=== PATIENT | female | born 1965 | race Caucasian/White ===

== ENCOUNTER → 2023-02-27 | Outpatient (CLI) | payer BC | END | disposition home or self-care (01) | LOC: LABWHC1 13:56 | PROVIDERS: ATTEND Surgery Plastic and Reconstructive Surgery | DX: Z01.812 Encounter for preprocedural laboratory examination (principal); R94.31 Abnormal electrocardiogram [ECG] [EKG] | CPT/HCPCS: 36415; 93005 ==

== ENCOUNTER 2023-04-13 13:24 | Day surgery (SDC) | payer BC ==
--- NOTE | 2023-04-13 05:28 | P.GSHP ---
History of Present Illness H&P Date: 04/13/23 CHIEF COMPLAINT: History of intra-abdominal adhesions HISTORY OF PRESENT ILLNESS: The patient is a 57-year-old female who presents with history of intra-abdominal adhesions from multiple prior surgeries including increasing abdominal pain. She now presents for diagnostic laparoscopy including lysis of adhesions. PAST MEDICAL HISTORY: Please see list. PAST SURGICAL HISTORY: Please see list. MEDICATIONS: Please see list. ALLERGIES: Please see list. SOCIAL HISTORY: No illicit drug use FAMILY HISTORY: No reports of Crohn disease or ulcerative colitis. REVIEW OF ORGAN SYSTEMS: CONSTITUTIONAL: No reports of fevers or chills. GI: Denies any blood in stools or constipation. PHYSICAL EXAM: VITAL SIGNS: Stable GENERAL: Well-developed pleasant and in no acute distress. HEENT: No scleral icterus. Extraocular movements grossly intact. Moist buccal mucosa. NECK: Supple without lymphadenopathy. CHEST: Unlabored respirations. Equal bilateral excursions. CARDIOVASCULAR: Regular rate and rhythm. Distal 2+ pulses. ABDOMEN: Soft, diffuse abdominal tenderness. No peritonitis. MUSCULOSKELETAL: No clubbing, cyanosis, or edema. ASSESSMENT: 1. Diffuse abdominal pain. 2. History of multiple abdominal surgeries. 3. Intra-abdominal adhesions. PLAN: 1. Robotic lysis of adhesions were described in detail including risk of injury to the intestine, need for further surgery, and open technique. 2. DVT prophylaxis. 3. Antibiotic prophylaxis. Past Medical History Past Medical History: Cancer, Thyroid Disorder Additional Past Medical History / Comment(s): AUTOIMMUNE THYROID DISEASE-MITRAL VALVE ISSUE THAT ACTS UP WHEN THYROID DOES. LEFT BREAST CANCER 2016. OSTEOPOROSIS. KINDEY STONES. CHRONIC BACK AND BONE PAIN History of Any Multi-Drug Resistant Organisms: None Reported Past Surgical History: Breast Surgery, Hysterectomy, Orthopedic Surgery Additional Past Surgical History / Comment(s): CHERYLE MASTECTOMY WITH RECONSTRU CTION. SALPINGECTOMY AFTER HYSTERECTOMY. LITHOTRIPSY. LEFT THYROID LOBECTOMY AND ISTHMUS REMOVED. PINS IN ARM AFTER FX Past Anesthesia/Blood Transfusion Reactions: Postoperative Nausea & Vomiting (PONV) Additional Past Anesthesia/Blood Transfusion Reaction / Comment(s): PONV AFTER THYROID SURGERY Smoking Status: Former smoker - Past Family History Father Family Medical History: Cancer Additional Family Medical History / Comment(s): LUNG Medications and Allergies Home Medications Medication Instructions Recorded Confirmed Type Calcium Carbonate [Calcium] 600 mg PO DAILY 03/23/23 04/09/23 History Cholecalciferol [Vitamin D3 (25 25 mcg PO DAILY 03/23/23 04/09/23 History Mcg = 1000 Iu)] Magnesium 0 mg PO DAILY 03/23/23 04/09/23 History Nf-Zohydro Er 30 mg PO BID 03/23/23 04/09/23 History Tamoxifen [Nolvadex] 10 mg PO DAILY 03/23/23 04/09/23 History cloNIDine HCL 0.1 mg PO BID 03/23/23 04/09/23 History Allergies Allergy/AdvReac Type Severity Reaction Status Date / Time tetracycline Allergy Swelling Verified 04/09/23 09:24 [From Achromycin]
[~2023-04-13 13:24] MED LIST: ACETAMINOPHEN TAB 325 MG TAB PO PRN; ACETAMINOPHEN TAB 500 MG TAB PO PRN; HEPARIN SODIUM,PORCINE/PF 5,000 UNIT/0.5 ML SYRINGE SQ PRN; MELOXICAM 7.5 MG TAB PO PRN; ONDANSETRON 4 MG/2 ML VIAL IVP PRN; Pre Op ABX Message 1 EACH MISC MISCELLANE ONE
[2023-04-13] MEDS ORDERED: LACTATED RINGERS 1,000 ML IV SCH (14:37)
--- NOTE | 2023-04-13 15:12 | P.HPADDEND ---
H&P Addendum H&P Addendum Date: 04/13/23 Patient presents for right lower quadrant pain and no appendicolith for appendicitis. Robotic appendectomy described in the emergency lysis of adhesions. Patient has pre-existing pain contract where nonnephrotic pain to be dispensed
[2023-04-13 15:20] LABS: Basophils % (A) 0 %; Eosinophils # (A) 0.2 k/uL (0-0.7); Eosinophils % (A) 3 %; HCT 44.3 % (34.0-46.0); HGB 14.5 gm/dL (11.4-16.0); Lymphocytes # (A) 2.2 k/uL (1.0-4.8); Lymphocytes % (A) 31 %; MCH 31.9 pg (25.0-35.0); MCHC 32.8 g/dL (31.0-37.0); MCV 97.4 fL (80.0-100.0); Mean Platelet Volume 9.3; Monocytes # (A) 0.4 k/uL (0-1.0); Monocytes % (A) 6 %; Neutrophils # (A) 4.1 k/uL (1.3-7.7); Neutrophils % (A) 57 %; Platelet Count 215 k/uL (150-450); RBC 4.55 m/uL (3.80-5.40); RDW 13.4 % (11.5-15.5); WBC 7.2 k/uL (3.8-10.6)
[2023-04-13 15:21] LABS: ALT 18 U/L (4-34); AST 30 U/L (14-36); African American GFR (CKD) >90 (>60 ml/min/1.73 sqM); Albumin 4.3 g/dL (3.5-5.0); Alkaline Phosphatase 64 U/L (38-126); Anion Gap 6 mmol/L; Blood Urea Nitrogen 20 mg/dL (7-17); Calcium 9.4 mg/dL (8.4-10.2); Carbon Dioxide 31 mmol/L (22-30); Chloride 103 mmol/L (98-107); Glucose 98 mg/dL (74-99); Non-African American GFR(CKD) >90 (>60 ml/min/1.73 sqM); Potassium 4.4 mmol/L (3.5-5.1); Sodium 140 mmol/L (137-145); Total Bilirubin 0.4 mg/dL (0.2-1.3); Total Protein 7.7 g/dL (6.3-8.2)
[2023-04-13] MEDS ORDERED: fentaNYL (PF) 50 MCG/ML 2 ML AMP ONE (15:25)
[2023-04-13] MEDS ORDERED: LIDOCAINE 2% INJ 20 MG/ML (2 ML VIAL) ONE (15:25)
[2023-04-13] MEDS ORDERED: PROPOFOL 10 MG/ML 20 ML VIAL IV ONE (15:25)
[2023-04-13] MEDS ORDERED: ePHEDrine 50 MG/ML 1 ML VIAL ONE (15:25)
[2023-04-13] MEDS ORDERED: KETOROLAC 15 MG/ML 1 ML VIAL ONE (15:25)
[2023-04-13] MEDS ORDERED: GLYCOPYRROLATE 0.2 MG/ML 2 ML VIAL ONE (15:25)
[2023-04-13] MEDS ORDERED: NEOSTIGMINE 1 MG/ML 10 ML VIAL ONE (15:25)
[2023-04-13] MEDS ORDERED: ROCURONIUM 10 MG/ML (5 ML VIAL) IV ONE (15:25)
[2023-04-13] MEDS ORDERED: SUCCINYLCHOLINE CHLORIDE 200 MG/10 ML VIAL IV ONE (15:25)
[2023-04-13] MEDS ORDERED: PHENYLEPHRINE-0.9% NACL SYG 1,000 MCG/10 ML SYRINGE ONE (15:25)
[2023-04-13] MEDS ORDERED: MIDAZOLAM 2 MG/2 ML VIAL ONE (15:25)
[2023-04-13] MEDS ORDERED: LIDOCAINE 0.5%-EPI 1:200,000 50 ML VIAL SQ ONE ×2 (15:30)
[2023-04-13] MEDS ORDERED: LACTATED RINGERS 1,000 ML IV ONE (16:58)
[2023-04-13 17:17] VITALS: TEMP 97.2
--- NOTE | 2023-04-13 17:53 | P.OP ---
Date of Procedure: 04/13/23 Description of Procedure: SURGEON: DARA BAUM MD Preoperative Diagnosis: 1. Right lower quadrant pain 2. Appendicolith 3. Left lower quadrant abdominal pain 4. History of multiple abdominal surgeries 5. History of breast cancer 6. History of multiple abdominal adhesions Postoperative Diagnosis: 1. Appendicitis 2. Sigmoid volvulus Procedure(s) Performed: 1. Robotic-assisted daVinci Xi laparoscopic reduction of sigmoid volvulus 2. Robotic-assisted daVinci Xi laparoscopic appendectomy Anesthesia: GETA, local Estimated Blood Loss (ml): 5 Pathology: other (appendix) Condition: stable Disposition: floor Operative Findings: 1. Diffuse gaseous distention of colon 2. Sigmoid volvulus reduced without ischemia or infarct 3. No pelvic adhesions identified 4. Multiple appendicoliths within the appendix, chronic appendicitis 5. Trochars placed upon upper abdomen 6. Reduce insufflation due to underweight INDICATIONS: The patient is a 57-year-old female who presents with acute appendicitis. Benefits and risks, including infection, open surgery, and bleeding for additional surgery was discussed at length. Informed consent was obtained. All questions of the patient and family were answered. DESCRIPTION: The patient was transferred to the operating room and placed in supine position. The patient had previously voided. The abdomen was then prepped and draped in standard sterile fashion as Ioban was placed along the abdomen to minimize any contamination of skin floor. After a timeout protocol was performed, attention was then brought to the left upper quadrant whereby a 0 degree 5 mm laparoscopic trocar entry was performed. The abdominal cavity was entered and insufflated to 12 mmHg pressure, which was tolerated well. Diagnostic laparoscopy demonstrated no injury to bowel, viscera or mesentery. Next a robotic 8-mm trocar was placed along the left lower quadrant, 10-cm lateral to the midline. A 12 mm port was placed along the left upper quadrant and another 8-mm port left lateral abdominal wall. Ports were placed 8 cm apart from each other including 15-20 cm away from the target anatomy of the right pelvis. The patient was then placed in Trendelenburg position, at least 14 down and right side up at least 7. The robotic da Chente XI system was primed and docked from the left side of the patient. Using atraumatic graspers and vessel sealer, the robotic system was docked and primed as described. Instruments were interchanged by the dietitian assistant including graspers, robotic stapler and vessel sealer. Next, attention was brought to identify the cecum. A systematic view within the abdominal cavity was started with the small bowel which was unremarkable. The base of the cecum was unremarkable. The appendix was retrocecal coursing towards right upper quadrant behind the ascending colon with additional dissection required. The body of the appendix was moderately dilated with moderate periappendicitis. No perforation was identified. The appendix was dissected free from its surrounding tissues. Blue 45 mm robotic staple loads were fired along the base of the appendix. The staple line was hemostatic. Hemostasis was checked prior to undocking the robot. The robot was undocked. I re-scrubbed into the case. The specimen was removed from the abdominal cavity with an Endo Catch bag through the 12 mm trocar at the left upper quadrant. All instruments and pneumoperitoneum were evacuated from the abdominal cavity. Local anesthetic was infiltrated to all wounds for postop analgesia. All incisions were also cleansed with diluted hydrogen peroxide. The incisions were closed with 4-0 Monocryl. Exofin glue was applied to the rest of the skin incisions. The patient had tolerated the procedure well. The patient was extubated successfully. The patient was transferred to the postanesthesia care unit in stable condition. Plan - Discharge Summary Discharge Rx Participant: No New Discharge Prescriptions: New Simethicone 40 mg/0.6 ml Drops [Mylicon Drops] 40 mg PO Q6HR PRN #30 ml PRN Reason: Abdominal Distention Acetaminophen Tab [Tylenol Tab] 500 mg PO Q6H PRN #30 tablet PRN Reason: Pain Continue cloNIDine HCL 0.1 mg PO BID Nf-Zohydro Er 30 mg PO BID Magnesium 0 mg PO DAILY Omeprazole 20 mg PO Cholecalciferol [Vitamin D3 (25 Mcg = 1000 Iu)] 25 mcg PO DAILY Calcium Carbonate [Calcium] 600 mg PO DAILY Tamoxifen [Nolvadex] 10 mg PO DAILY Discharge Medication List Calcium Carbonate [Calcium] 600 mg PO DAILY 03/23/23 [History] Cholecalciferol [Vitamin D3 (25 Mcg = 1000 Iu)] 25 mcg PO DAILY 03/23/23 [History] Magnesium 0 mg PO DAILY 03/23/23 [History] Nf-Zohydro Er 30 mg PO BID 03/23/23 [History] Tamoxifen [Nolvadex] 10 mg PO DAILY 03/23/23 [History] cloNIDine HCL 0.1 mg PO BID 03/23/23 [History] Acetaminophen Tab [Tylenol Tab] 500 mg PO Q6H PRN #30 tablet 04/13/23 [Rx] Omeprazole 20 mg PO 04/13/23 [History] Simethicone 40 mg/0.6 ml Drops [Mylicon Drops] 40 mg PO Q6HR PRN #30 ml 04/13/23 [Rx] Follow up Appointment(s)/Referral(s): Dara Baum MD [STAFF PHYSICIAN] - 04/17/23 Patient Instructions/Handouts: Laparoscopic Appendectomy (DC) Activity/Diet/Wound Care/Special Instructions: TELEHEALTH - DR WILL CALL YOU BETWEEN 8 am to 8 pm NO RETURN TO WORK UNTIL APR 30 Recommend low-fat diet for the next 2 days. No lifting over 10 pounds in 2 weeks until Apr 27December shower. No bath tub soaks for two weeks until Apr 27 Diet as tolerated. Use Tylenol, simethicone and ibuprofen or Aleve scheduled for the next 24-48 hours for best pain relief. Use ice along incisions for today to prevent swelling. Discharge Disposition: HOME SELF-CARE
[2023-04-13 18:07] VITALS: BP 91/59; PULSE 84; RESP 17
== END 2023-04-13 18:27 | disposition home or self-care (01) ==
LOC: OR 13:24
PROVIDERS: ATTEND Surgery Plastic and Reconstructive Surgery
DX: K36 Other appendicitis (principal); K66.0 Peritoneal adhesions (postprocedural) (postinfection); K56.2 Volvulus; K38.1 Appendicular concretions; E07.9 Disorder of thyroid, unspecified; Z85.3 Personal history of malignant neoplasm of breast; Z90.710 Acquired absence of both cervix and uterus; Z98.890 Other specified postprocedural states; Z87.891 Personal history of nicotine dependence; Z80.1 Family history of malignant neoplasm of trachea, bronchus and lung; Z79.899 Other long term (current) drug therapy; Z88.1 Allergy status to other antibiotic agents; Z79.890 Hormone replacement therapy
CPT/HCPCS: 80053; 85025; 88302; 44970; J2250; J0330; J2710; J2405; J3010; J1885; J2704; J1644; J2001; J2371

== ENCOUNTER 2023-06-21 09:19 | Day surgery (SDC) | payer BC ==
--- NOTE | 2023-06-21 07:56 | P.GSHP ---
History of Present Illness H&P Date: 06/21/23 CHIEF COMPLAINT: History of sigmoid volvulus HISTORY OF PRESENT ILLNESS: The patient is a 57-year-old female with chronic abdominal pain for over 3 years including recent diagnosis of sigmoid volvulus. Abdominal pain has been worsening. She presents today for colonoscopy decompression of sigmoid volvulus including sigmoid colon resection. PAST MEDICAL HISTORY: Please see list. PAST SURGICAL HISTORY: Please see list. MEDICATIONS: Please see list. ALLERGIES: Please see list. SOCIAL HISTORY: No illicit drug use FAMILY HISTORY: No reports of Crohn disease or ulcerative colitis. REVIEW OF ORGAN SYSTEMS: CONSTITUTIONAL: Denies any fever or chills. Underway, BMI 15.1 HEENT: Denies any trouble with vision or nosebleeds. No difficulty swallowing. LYMPHATIC: The patient denies any lumps and bumps around the neck. ENDOCRINE: Denies any thyroid disorders. RESPIRATORY: Denies pneumonia. Denies any troubles with breathing or dyspnea on exertion. CARDIOVASCULAR: Denies any chest pain, palpitations, or recent heart attacks GASTROINTESTINAL: Has gastroesophageal reflux disease. Change in bowel habits, volvulus. GENITOURINARY: No blood in urine. MUSCULOSKELETAL: Has back pain, stiffness, joint arthritis. NEUROLOGIC: Denies any numbness or tingling along the distal extremities. No seizure disorders or headaches. PSYCHIATRIC: Denies depression or suidical ideation. HEMATOLOGIC: Denies any abnormal bleeding or bruising. BREAST: History of breast cancer. PHYSICAL EXAM: VITAL SIGNS: Stable GENERAL: Well-developed pleasant in no acute distress. HEENT: No scleral icterus. Extraocular movements grossly intact. Moist buccal mucosa. NECK: Supple without lymphadenopathy. CHEST: Unlabored respirations. Equal bilateral excursions. CARDIOVASCULAR: Regular rate and rhythm. Distal 2+ pulses. ABDOMEN: Soft, nontender, nondistended. MUSCULOSKELETAL: No clubbing, cyanosis, or edema. NERUO: Cranial nerves II through XII grossly intact PSYCH: Alert and oriented to person place and time. ASSESSMENT: 1. Chronic abdominal pain due to sigmoid volvulus 2. History of breast cancer 3. Underweight, BMI 15.1 PLAN: 1. Benefits and risks of surgical intervention particular sigmoid volvulus reviewed in detail. Robotic-assisted approach was also described. 2. She has completed an enhanced colon recovery program. 3. DVT prophylaxis. 4. Antibiotic prophylaxis. 5. She is moderately elevated risk due to breast cancer and underweight Past Medical History Past Medical History: Cancer, GERD/Reflux, Thyroid Disorder Additional Past Medical History / Comment(s): AUTOIMMUNE THYROID DISEASE-MITRAL VALVE ISSUE THAT ACTS UP WHEN THYROID DOES. LEFT BREAST CANCER 2016, OSTEOPOROSIS , KIDNEY STONES ,CHRONIC BACK AND BONE PAIN. HAS TWISTED BOWEL History of Any Multi-Drug Resistant Organisms: None Reported Past Surgical History: Appendectomy, Breast Surgery, Hysterectomy, Orthopedic Surgery Additional Past Surgical History / Comment(s): CHERYLE MASTECTOMY WITH RECONSTRUCTION, SALPINGECTOMY AFTER HYSTERECTOMY. LITHOTRIPSY ,LEFT THYROID LOBECTOMY AND ISTHMUS REMOVED. PINS IN RT ARM AFTER FX, LYMPH NODES REMOVED LT ARM, REDUCTION OF SIGMOID VOLVULUS-04/13/23, COLONOSCOPY, Past Anesthesia/Blood Transfusion Reactions: Postoperative Nausea & Vomiting (PONV) Additional Past Anesthesia/Blood Transfusion Reaction / Comment(s): PONV AFTER THYROID SURGERY Smoking Status: Former smoker - Past Family History Father Family Medical History: Cancer Additional Family Medical History / Comment(s): LUNG Medications and Allergies Home Medications Medication Instructions Recorded Confirmed Type Calcium Carbonate [Calcium] 600 mg PO DAILY 03/23/23 06/20/23 History Cholecalciferol [Vitamin D3 (25 25 mcg PO DAILY 03/23/23 06/20/23 History Mcg = 1000 Iu)] Magnesium 0 mg PO DAILY 03/23/23 06/20/23 History Nf-Zohydro Er 30 mg PO BID 03/23/23 06/20/23 History cloNIDine HCL 0.1 mg PO BID 03/23/23 06/20/23 History Acetaminophen Tab [Tylenol Tab] 500 mg PO Q6H PRN #30 tablet 04/13/23 06/20/23 Rx Omeprazole 20 mg PO DAILY 04/13/23 06/20/23 History Tamoxifen Citrate [Nolvadex] 20 mg PO DAILY 06/20/23 06/20/23 History Allergies Allergy/AdvReac Type Severity Reaction Status Date / Time tetracycline Allergy Swelling Verified 06/20/23 09:43 [From Achromycin]
[~2023-06-21 09:19] MED LIST changes: -ACETAMINOPHEN TAB 325 MG TAB PO PRN; -ACETAMINOPHEN TAB 500 MG TAB PO PRN; +Antibiotics per Pharmacy 1 EACH MISC MISCELLANE PRN; -HEPARIN SODIUM,PORCINE/PF 5,000 UNIT/0.5 ML SYRINGE SQ PRN; +LIDOCAINE 1% (10MG/ML) FOR IV START INTRADERMA PRN; -MELOXICAM 7.5 MG TAB PO PRN; -ONDANSETRON 4 MG/2 ML VIAL IVP PRN; +PEG 3350 (420 GM/BTL) + LYTES 4,000 ML BOTTLE PO ONE; -Pre Op ABX Message 1 EACH MISC MISCELLANE ONE
[2023-06-21] MEDS ORDERED: PROPOFOL 10 MG/ML 20 ML VIAL IV ONE (10:40)
[2023-06-21] MEDS ORDERED: LIDOCAINE 2% (PF) 20 MG/ML 5 ML VIAL ONE (10:40)
[2023-06-21] MEDS: LACTATED RINGERS 1,000 ML IV SCH (10:40)
[2023-06-21 10:55] LABS: Basophils % (A) 0 %; Eosinophils # (A) 0.3 k/uL (0-0.7); Eosinophils % (A) 3 %; HGB 14.2 gm/dL (11.4-16.0); Lymphocytes # (A) 2.3 k/uL (1.0-4.8); Lymphocytes % (A) 30 %; MCH 31.5 pg (25.0-35.0); MCHC 32.3 g/dL (31.0-37.0); MCV 97.7 fL (80.0-100.0); Mean Platelet Volume 9.5; Monocytes # (A) 0.4 k/uL (0-1.0); Monocytes % (A) 5 %; Neutrophils # (A) 4.6 k/uL (1.3-7.7); Neutrophils % (A) 59 %; Platelet Count 205 k/uL (150-450); RBC 4.51 m/uL (3.80-5.40); RDW 14.1 % (11.5-15.5); WBC 7.8 k/uL (3.8-10.6)
[2023-06-21 11:15] LABS: ALT 22 U/L (4-34); AST 32 U/L (14-36); African American GFR (CKD) >90 (>60 ml/min/1.73 sqM); Albumin 4.2 g/dL (3.5-5.0); Alkaline Phosphatase 62 U/L (38-126); Anion Gap 9 mmol/L; Blood Urea Nitrogen 18 mg/dL (7-17); Calcium 9.4 mg/dL (8.4-10.2); Carbon Dioxide 29 mmol/L (22-30); Chloride 104 mmol/L (98-107); Glucose 92 mg/dL (74-99); Non-African American GFR(CKD) >90 (>60 ml/min/1.73 sqM); Potassium 4.1 mmol/L (3.5-5.1); Sodium 142 mmol/L (137-145); Total Bilirubin 0.3 mg/dL (0.2-1.3); Total Protein 7.4 g/dL (6.3-8.2)
[2023-06-21] MEDS ORDERED: SODIUM CHLORIDE 0.9% 1,000 ML IV ONE (11:31)
[2023-06-21] MEDS ORDERED: ONDANSETRON 4 MG/2 ML VIAL IVP PRN (11:32)
--- NOTE | 2023-06-21 11:34 | P.PCN ---
Date of Procedure: 06/21/23 Description of Procedure: PREOPERATIVE DIAGNOSIS: Sigmoid volvulus POSTOPERATIVE DIAGNOSIS: Sigmoid volvulus OPERATION: Colonoscopy with decompression sigmoid volvulus. SURGEON: Dara Baum MD. ANESTHESIA: MAC. INDICATIONS: The patient is a 57-year-old female who presents with chronic abdominal pain and recent diagnosis sigmoid volvulus. Benefits and risks were described and informed consent was obtained. DESCRIPTION OF PROCEDURE: The patient had undergone Sutab prep. The patient had been brought into the operating room and laid in the left lateral decubitus position. After adequate intravenous sedation, the rectum was examined with 2% lidocaine jelly. No external hemorrhoids were encountered. The rectal tone was within normal limits. No lesions were palpated in the rectal vault. An Olympus colonoscope was advanced to the ascending colon with decompression of sigmoid volvulus. The prep was excellent. No colonic polyps were found. No evidence of focal colitis was found. Retroflexion of the scope demonstrated grade 2 internal hemorrhoids without active bleeding or inflammation. The colon was desufflated. The patient had tolerated the procedure well. Withdrawal time was over 6 minutes. FINDINGS: Aronchick preparation quality scale 1 (1-5) Internal hemorrhoids, grade 2 External prolapsed hemorrhoids, grade 2 No arteriovenous malformations. No adenomatous polyps. No focal colitis. Decompression of sigmoid volvulus RECOMMENDATIONS: 1. Recommend admission for colonic resection for sigmoid volvulus
[2023-06-21 11:54] LABS: Glucose,Whole Blood 77 mg/dL (70-110)
[2023-06-21] MEDS: SODIUM CHLORIDE 0.9% 1,000 ML IV SCH (12:48)
[2023-06-21] MEDS: PATIENT'S OWN--NEOMYCIN 500 MG TAB PO SCH ×3 (12:57→23:22)
[2023-06-21] MEDS: PATIENT'S OWN--metroNIDAZOLE 500 MG TAB PO SCH ×3 (12:57→23:22)
[2023-06-21] MEDS: HEPARIN SODIUM,PORCINE/PF 5,000 UNIT/0.5 ML SYRINGE SQ STA (15:51)
[2023-06-21] MEDS: cloNIDine HCL 0.1 MG TAB PO SCH (20:32)
[2023-06-22] MEDS ORDERED: ACETAMINOPHEN TAB 500 MG TAB PO PRN (07:00)
[2023-06-22] MEDS ORDERED: ALVIMOPAN 12 MG CAPSULE PO PRN (07:00)
[2023-06-22] MEDS: LACTATED RINGERS 1,000 ML IV SCH ×2 (08:08→15:15)
[2023-06-22] MEDS: TAMOXIFEN 10 MG TAB PO SCH (08:10)
[2023-06-22] MEDS: cloNIDine HCL 0.1 MG TAB PO SCH ×2 (08:10→22:04)
[2023-06-22] MEDS: SODIUM CHLORIDE 0.9% 1,000 ML IV SCH ×2 (08:10→16:08)
[2023-06-22] MEDS: PANTOPRAZOLE 40 MG TABLET PO SCH (08:11)
[2023-06-22] MEDS ORDERED: IV FLUID CONTINUATION 1,000 ML IV ONE (09:17)
[2023-06-22 09:44] LABS: Basophils % (A) 0 %; Eosinophils # (A) 0.1 k/uL (0-0.7); Eosinophils % (A) 2 %; HCT 37.3 % (34.0-46.0); HGB 12.1 gm/dL (11.4-16.0); Lymphocytes # (A) 1.8 k/uL (1.0-4.8); Lymphocytes % (A) 34 %; MCH 31.9 pg (25.0-35.0); MCHC 32.5 g/dL (31.0-37.0); Mean Platelet Volume 9.8; Monocytes # (A) 0.2 k/uL (0-1.0); Monocytes % (A) 5 %; Neutrophils # (A) 2.9 k/uL (1.3-7.7); Neutrophils % (A) 57 %; Platelet Count 168 k/uL (150-450); RBC 3.81 m/uL (3.80-5.40); RDW 13.7 % (11.5-15.5); WBC 5.1 k/uL (3.8-10.6)
[2023-06-22] MEDS ORDERED: ALVIMOPAN 12 MG CAPSULE PO ONE (09:50)
[2023-06-22 09:55] LABS: African American GFR (CKD) >90 (>60 ml/min/1.73 sqM); Anion Gap 7 mmol/L; Blood Urea Nitrogen 7 mg/dL (7-17); Calcium 8.4 mg/dL (8.4-10.2); Carbon Dioxide 22 mmol/L (22-30); Chloride 112 mmol/L (98-107); Glucose 94 mg/dL (74-99); Non-African American GFR(CKD) >90 (>60 ml/min/1.73 sqM); Potassium 4.1 mmol/L (3.5-5.1); Sodium 141 mmol/L (137-145)
[2023-06-22] MEDS ORDERED: MIDAZOLAM 2 MG/2 ML VIAL IVP ONE ×3 (10:03→10:05)
--- NOTE | 2023-06-22 10:22 | P.ANPRN ---
Procedure Note - Anesthesia - Nerve Block Performed Bilateral Erector Spinae Single Time Out Performed: Yes (1002) Date of Procedure: 06/22/23 Procedure Start Time: 10:06 Procedure Stop Time: 10:13 Location of Patient: PreOp Indication: Acute Post-Operative Pain, Requested by Surgeon Sedation Type: Sedate with meaningful contact maintained Preparation: Sterile Prep, Sterile Dressing Position: Prone Catheter: None Needle Types: Pajunk Needle Gauge: 21 Ultrasound used to visualize needle placement: Yes Ultrasound used to observe medication spread: Yes Injectate: 0.5% Ropivacaine (see comment for volume) (21 mL of block solution injected on each side. The block solution containing 20 ML of 0.9% preservative-free normal saline mixed with 20 ML of 0.5% bupivacaine, and 8 MG of dexamethasone) Blood Aspirated: No Pain Paresthesia on Injection Noted: No Resistance on Injection: Normal Image Stored and Saved: Yes Events: Uneventful and Well Tolerated
[2023-06-22] MEDS: HEPARIN SODIUM,PORCINE/PF 5,000 UNIT/0.5 ML SYRINGE SQ STA (10:54)
[2023-06-22] MEDS ORDERED: GLYCOPYRROLATE 0.2 MG/ML 2 ML VIAL ONE (11:08)
[2023-06-22] MEDS ORDERED: LIDOCAINE 1% INJ 10MG/ML (20 ML MDV) ONE (11:08)
[2023-06-22] MEDS ORDERED: HYDROmorphone (PF) 1 MG/ML ONE (11:08)
[2023-06-22] MEDS ORDERED: fentaNYL (PF) 50 MCG/ML 2 ML AMP ONE (11:08)
[2023-06-22] MEDS ORDERED: PROPOFOL 10 MG/ML 20 ML VIAL IV ONE (11:08)
[2023-06-22] MEDS ORDERED: ROPIVACAINE 5 MG/ML 30 ML VIAL ONE (11:08)
[2023-06-22] MEDS ORDERED: SUCCINYLCHOLINE CHLORIDE 200 MG/10 ML VIAL IV ONE (11:08)
[2023-06-22] MEDS ORDERED: SODIUM CHLORIDE 0.9% (PF) 10 ML VIAL ONE (11:08)
[2023-06-22] MEDS ORDERED: NEOSTIGMINE 1 MG/ML 10 ML VIAL ONE (11:08)
[2023-06-22] MEDS ORDERED: DEXAMETHASONE SOD PHOSPHATE 4 MG/ML 1 ML VIAL ONE (11:08)
[2023-06-22] MEDS ORDERED: ROCURONIUM 10 MG/ML (5 ML VIAL) IV ONE (11:08)
[2023-06-22] MEDS ORDERED: DILTIAZEM 5 MG/ML 10 ML VIAL ONE (11:08)
[2023-06-22] MEDS ORDERED: SODIUM CHLORIDE 0.9% 50 ML with ceFAZolin 1,000 MG IV ONE ×2 (11:09)
[2023-06-22] MEDS ORDERED: LACTATED RINGERS 1,000 ML IV ONE (11:42)
[2023-06-22] MEDS ORDERED: LIDOCAINE 2%-EPI 1:100,000 20 ML VIAL SQ ONE ×2 (11:43→11:49)
[2023-06-22 14:53] VITALS: BMI 14.8
[2023-06-22] MEDS ORDERED: HYDROmorphone 0.5 MG/0.5 ML SYRINGE IVP ONE (15:02)
[2023-06-22] MEDS ORDERED: METOCLOPRAMIDE 5 MG/ML 2 ML VIAL IVP PRN (15:05)
[2023-06-22] MEDS ORDERED: NALOXONE 0.4 MG/ML 1 ML VIAL IV PRN ×2 (15:05→15:08)
[2023-06-22] MEDS ORDERED: fentaNYL PCA 500 MCG/50 ML BAG IV SCH (15:15)
[2023-06-22] MEDS ORDERED: ACETAMINOPHEN IV (For NPO) 500 MG in EMPTY BAG 1 BAG IVPB ONE (15:45)
[2023-06-22] MEDS: ONDANSETRON 4 MG/2 ML VIAL IVP SCH (17:59)
[2023-06-22] MEDS: HYDROmorphone 1 MG/ML 1 ML SYRINGE IVP PRN (18:06)
--- NOTE | 2023-06-22 18:26 | P.OP ---
Date of Procedure: 06/22/23 Description of Procedure: SURGEON: SHAUNA POLK MD PREOPERATIVE DIAGNOSES: 1. Chronic abdominal pain due to sigmoid volvulus 2. Underweight, BMI 14.9 3. History of breast cancer 4. Hypertensive heart disease 5. Osteoporosis 6. Gastroesophageal reflux disease 7. Autoimmune thyroid disorder 8. Postoperative nausea and vomiting POSTOPERATIVE DIAGNOSES: 1. Chronic abdominal pain due to sigmoid volvulus 2. Underweight, BMI 14.9 3. History of breast cancer 4. Hypertensive heart disease 5. Osteoporosis 6. Gastroesophageal reflux disease 7. Autoimmune thyroid disorder 8. Postoperative nausea and vomiting OPERATION: 1. Robotic-assisted daVinci Xi sigmoid colectomy with low anterior resection using 29 mm Ethicon powered stapler 2. Intraoperative colonoscopy used for sigmoidoscopy Anesthesia: GETA, local, regional Estimated Blood Loss (ml): 20 Pathology: 1. Sigmoid colon 2. EEA donuts 3. Proximal colotomy Condition: stable Disposition: floor COMPLICATIONS: None. Operative Findings: 1. Redundant sigmoid colon with active sigmoid volvulus without bowel infarction 2. Anastomosis with EEA stapler 29 mm 3. No tension or torsion along the anastomosis 4. Doughnuts thick and both sides and viable 5. Moderately redundant sigmoid colon without tension at anastomosis 6. Negative leak test with viable anastomosis. INDICATIONS: The patient is a 57-year-old female who presents with over 10 month history of chronic abdominal pain. Recent diagnostic studies demonstrated intermittent sigmoid volvulus. Benefits and risks of surgical intervention was described in detail including infection, injury to the ureter, colostomy creation, possibility for additional surgery was discussed at length. Informed consent was obtained. All questions of the patient and family were answered. DESCRIPTION: Earlier the patient had undergone a bowel prep using the enhanced colon recovery program. The patient was transferred to the operating room and placed supine. After general induction, the abdomen was prepped and draped in standard sterile fashion. Ioban was placed along the abdomen to minimize any contamination of skin floor. A Toro catheter was placed. After a timeout protocol was performed, attention was then brought to the left upper quadrant whereby a 0 degree 5 mm laparoscopic trocar entry was performed. The abdominal cavity was entered and insufflated to 12 mmHg pressure, which was tolerated well. Pressures were adjusted to 20 mmHg pressure. Diagnostic laparoscopy confirmed moderately redundant sigmoid colon with active volvulus without infarction. The small bowel was unremarkable. Next a robotic 12-mm trocar was placed along the right lateral abdominal wall 20 cm superior from the pelvis. Two 8 mm ports were placed along the upper abdomen. Ports were placed 10 cm apart from each other including 20 cm away from the target anatomy of the left pelvis. The 12-mm port was exchanged for an 8 mm robotic port at the left upper quadrant. The robot was docked along the left lateral abdomen. The patient was positioned in steep Trendelenburg position at 21-degrees. Using atraumatic graspers and vessel sealer, the robotic system was docked and primed as described. Instruments were interchanged by the assistant media buyer including hook cautery, needle mechanic welder truck driver, robotic stapler and vessel sealer. The robot stapler was prepared along the right lateral abdominal wall. The stapler 12-mm port was arranged along the right lateral abdominal wall. Next, attention was brought to identify the sigmoid colon. A stay suture using 3- 0 silk was placed along the anterior serosa of the redundant sigmoid colon. The sigmoid mesentery was mobilized using a vessel sealer whereby the descending colon was marked and tagged. Using multiple fires of the robot stapler 60 mm green load, the proximal sigmoid colon was divided. The mesentery of the sigmoid colon was mobilized towards the pelvic brim and sacral promontory using a vessel sealer. Hemostasis was checked with vessel sealer. The proximal rectum was mobilized using vessel sealer and blunt dissec tion. Next, the sigmoid colon was divided using the robotic stapler 60 mm green staple loads. The rest of the sigmoid colon mesentery was mobilized using vessel sealer. Additionally, the sigmoid colon was mobilized onto the colon to minimize injury to the ureters. I re-scrubbed into the case. The robotic arms were temporarily undocked. A 29-mm anvil was placed with a 3-0 silk sutured at the tip of the anvil apartment maintenance supervisor. Then the anvil was placed via the left upper quadrant 12 mm port. All robotic arms were re-docked. I went back to the console. The staple line was opened using cautery. The anvil was entered into the proximal descending colon. The colotomy was closed using 60 mm green load. Next, the sharp tip of the anvil apartment maintenance supervisor was brought through the staple line. The anvil apartment maintenance supervisor was removed from the abdomen using empty clip appliers. I went to the foot of the bed to place the powered Ethicon 29 mm stapler via the rectum. The anvil and stapler were mated for 1 minute. The doughnuts were intact on both sides and thick. An intraoperative leak test was performed as I inserted the colonoscope to the anastomosis. Endoscopic images were obtained. Irrigation was placed in the pelvis and no air leaks were identified. Irrigation fluid was aspirated from the pelvis until dry. I went back to the console. All sponges and needles were removed from the abdominal cavity. The robot was undocked. I re-scrubbed into the case. Via the left upper quadrant port, the sigmoid colon was removed using 15 mm Endo Catch bag. All sponges were removed from the abdominal cavity. The left upper quadrant incision was widened to 3-cm. No contamination had occurred throughout the case. The fascial defect was oversewn using 0 Vicryl and a Dirk Meyer. Next all pneumoperitoneum was evacuated from the abdominal cavity. The 8-mm trocar sites were reapproximated using 4-0 Monocryl in an interrupted subcuticular fashion. Local anesthetic was infiltrated to all wounds for postop analgesia. All incisions were also cleansed with diluted hydrogen peroxide. An Optifoam advance surgical dressing was placed over the colon extraction site. Liquid glue was applied to the rest of the skin incisions. The patient had tolerated the procedure well. The patient was extubated successfully. The patient was transferred to the postanesthesia care unit in stable condition. Intraoperative findings were described in detail to the patient's family.
[2023-06-22] MEDS: ACETAMINOPHEN TAB 500 MG TAB PO PRN (20:39)
[2023-06-22] MEDS ORDERED: SODIUM CHLORIDE 0.9% 1,000 ML IV ONE (21:01)
[2023-06-22] MEDS: HEPARIN SODIUM,PORCINE 5,000 UNIT/ML 1 ML VIAL SQ SCH (22:04)
[2023-06-22] MEDS: FAMOTIDINE 20 MG TAB PO SCH (22:04)
[2023-06-23] MEDS: ONDANSETRON 4 MG/2 ML VIAL IVP SCH ×2 (00:04→05:43)
[2023-06-23] MEDS: HYDROmorphone 1 MG/ML 1 ML SYRINGE IVP PRN (00:17)
[2023-06-23 02:32] VITALS: RESP 16
[2023-06-23] MEDS: ACETAMINOPHEN TAB 500 MG TAB PO PRN (05:28)
[2023-06-23 06:56] LABS: Basophils % (A) 0 %; Eosinophils % (A) 0 %; HGB 11.1 gm/dL (11.4-16.0); Lymphocytes # (A) 1.9 k/uL (1.0-4.8); Lymphocytes % (A) 17 %; MCH 32.1 pg (25.0-35.0); MCHC 32.8 g/dL (31.0-37.0); MCV 97.9 fL (80.0-100.0); Monocytes # (A) 0.6 k/uL (0-1.0); Monocytes % (A) 6 %; Neutrophils % (A) 74 %; Platelet Count 138 k/uL (150-450); RBC 3.47 m/uL (3.80-5.40); RDW 14.2 % (11.5-15.5); WBC 10.8 k/uL (3.8-10.6)
[2023-06-23 07:14] LABS: African American GFR (CKD) >90 (>60 ml/min/1.73 sqM); Anion Gap 8 mmol/L; Blood Urea Nitrogen 8 mg/dL (7-17); Calcium 8.1 mg/dL (8.4-10.2); Carbon Dioxide 19 mmol/L (22-30); Chloride 111 mmol/L (98-107); Glucose 77 mg/dL (74-99); Non-African American GFR(CKD) >90 (>60 ml/min/1.73 sqM); Potassium 3.9 mmol/L (3.5-5.1); Sodium 138 mmol/L (137-145)
[2023-06-23 07:34] VITALS: BP 130/76; PULSE 88; TEMP 98.1
[2023-06-23] MEDS: HEPARIN SODIUM,PORCINE 5,000 UNIT/ML 1 ML VIAL SQ SCH (07:35)
[2023-06-23] MEDS: FAMOTIDINE 20 MG TAB PO SCH (07:36)
[2023-06-23] MEDS: cloNIDine HCL 0.1 MG TAB PO SCH (07:36)
[2023-06-23] MEDS: TAMOXIFEN 10 MG TAB PO SCH (07:36)
[2023-06-23] MEDS: PANTOPRAZOLE 40 MG TABLET PO SCH (07:36)
[2023-06-23] MEDS ORDERED: metroNIDAZOLE-NS PMX 500 MG in SALINE 1 100ML.BAG IVPB SCH (08:00)
[2023-06-23] MEDS: SODIUM CHLORIDE 0.9% 1,000 ML IV SCH (10:11)
--- NOTE | 2023-06-23 10:47 | P.PN ---
Subjective Progress Note Date: 06/23/23 (Surgery) Patient is postop day 1 from below anterior resection. She is doing great. Has been having bowel function. Had a bowel movement this morning which had some old blood clots otherwise loose and brown. Abdominal exam is within expected limits with incisions being intact and clean. Patient is tolerating diet and was ambulating when I entered the room. Plan: Discharge instructions have been given by the primary surgeon and morbidly given by the nurses. She can be discharged home today. Advised to contact us or to come back if fresh blood or continuous bleeding is observed. Objective - Vital Signs Vital signs: Vital Signs Temp 98.1 F 06/23/23 07:00 Pulse 88 06/23/23 07:00 Resp 16 06/23/23 07:00 BP 130/76 06/23/23 07:00 Pulse Ox 99 06/23/23 07:00 FiO2 Intake & Output 06/22/23 06/23/23 06/23/23 18:59 06:59 18:59 Intake Total 1750 Output Total 295 600 Balance 1455 -600 Weight 35.7 kg Intake: IV 1750 Output: Urine 275 600 Estimated Blood Loss 20 Other: Voiding Method Indwelling Catheter Indwelling Catheter - Labs CBC & Chem 7: 06/23/23 06:20 06/23/23 06:20 Labs: Abnormal Lab Results - Last 24 Hours (Table) 06/23/23 06/23/23 Range/Units 06:20 06:20 WBC 10.8 H (3.8-10.6) k/uL RBC 3.47 L (3.80-5.40) m/uL Hgb 11.1 L (11.4-16.0) gm/dL Plt Count 138 L (150-450) k/uL Neutrophils # 8.0 H (1.3-7.7) k/uL Chloride 111 H (98-107) mmol/L Carbon Dioxide 19 L (22-30) mmol/L Calcium 8.1 L (8.4-10.2) mg/dL
== END 2023-06-23 11:02 | disposition home or self-care (01) ==
LOC: ORWHC2ENDO 09:19 → 5NMEDONC 13:56 → ORWHC2ENDO 06-23 11:02
PROVIDERS: ATTEND Surgery Plastic and Reconstructive Surgery
DX: K56.2 Volvulus (principal); I11.9 Hypertensive heart disease without heart failure; M81.0 Age-related osteoporosis without current pathological fracture; K21.9 Gastro-esophageal reflux disease without esophagitis; E07.9 Disorder of thyroid, unspecified; G89.29 Other chronic pain; Z87.442 Personal history of urinary calculi; Z90.710 Acquired absence of both cervix and uterus; Z90.49 Acquired absence of other specified parts of digestive tract; Z90.13 Acquired absence of bilateral breasts and nipples; Z90.79 Acquired absence of other genital organ(s); Z87.891 Personal history of nicotine dependence; Z80.1 Family history of malignant neoplasm of trachea, bronchus and lung; Z79.891 Long term (current) use of opiate analgesic; Z85.3 Personal history of malignant neoplasm of breast; Z79.810 Long term (current) use of selective estrogen receptor modulators (SERMs); Z79.1 Long term (current) use of non-steroidal anti-inflammatories (NSAID); Z79.899 Other long term (current) drug therapy
CPT/HCPCS: 44207; S2900; 45393; 64999; 80048; 80053; 85025; 86850; 86900; 86901